=== PATIENT | female | born 1995 | race Caucasian/White ===

== ENCOUNTER 2019-12-27 13:52 | Emergency (ER) | payer MEDICAID ==
[~2019-12-27] VITALS: Ht 175.3 cm; Wt 90.0 kg
[2019-12-27 15:41] VITALS: BP 106/58
== END 2019-12-27 15:44 | disposition home or self-care (01) ==
LOC: ED 15:35
DX: S29.011A Strain of muscle and tendon of front wall of thorax, initial encounter (principal); M94.0 Chondrocostal junction syndrome [Tietze]; R94.31 Abnormal electrocardiogram [ECG] [EKG]; W18.30XA Fall on same level, unspecified, initial encounter; Y93.89 Activity, other specified; Y92.89 Other specified places as the place of occurrence of the external cause; Y99.8 Other external cause status
CPT/HCPCS: 71046; 93005; 99283

== ENCOUNTER 2020-02-28 19:48 | Emergency (ER) | payer MEDICAID ==
[~2020-02-28] VITALS: Ht 172.7 cm; Wt 88.5 kg
--- NOTE | 2020-02-28 19:58 | NUR ---
PT BIB EMS FOR RUQ PAIN THAT GETS WORSE WHEN SHE EATS. PT ALSO COMPLAIN OF NVD. EKG HAS BEEN COMPLETED. PT IS RESTING IN [place] CONNECTED TO MONITORING EQUIPMENT
[2020-02-28 20:25] LABS: MICROSCOPIC NOT IND
[2020-02-28] MEDS ORDERED: ONDANSETRON ODT 4 MG PO ONE (20:30)
[2020-02-28] MEDS ORDERED: ONDANSETRON ODT 4 MG ONE (20:32)
[2020-02-28 21:00] LABS: BASOPHILS # (AUTO) 0.04 x10^3/uL (0-0.1); BASOPHILS % (AUTO) 1 % (0-1); EOSINOPHILS # (AUTO) 0.02 x10^3/uL (0-0.4); EOSINOPHILS % (AUTO) 0 % (1-7); LYMPHOCYTES # (AUTO) 1.53 x10^3/uL (1-3.4); LYMPHOCYTES % (AUTO) 18 % (22-44); MD NO; MEAN CORPUSCULAR HEMOGLOBIN 30.4 pg (27.0-34.8); MEAN CORPUSCULAR HGB CONC 32.6 g/dL (32.4-35.8); MEAN CORPUSCULAR VOLUME 93.1 fL (80-100); MEAN PLATELET VOLUME 9.7 fL (7.4-10.4); MONOCYTES # (AUTO) 0.52 x10^3/uL (0.2-0.8); MONOCYTES % (AUTO) 6 % (2-9); NEUTROPHILS # (AUTO) 6.25 x10^3/uL (1.8-6.8); NEUTROPHILS % (AUTO) 75 % (42-75); PLATELET COUNT 197 x10^3/uL (130-400); RED BLOOD COUNT 4.56 x10^6/uL (3.82-5.3); RED CELL DISTRIBUTION WIDTH 12.6 % (9.6-15.2)
[2020-02-28 21:06] LABS: ALANINE AMINOTRANSFERASE 17 U/L (12-78); ALBUMIN 3.8 g/dL (3.4-5.0); ANION GAP 4 mmol/L (5-15); CHLORIDE 112 mmol/L (98-107); CREATININE 0.63 mg/dL (0.55-1.02)
[2020-02-28 21:10] LABS: ALKALINE PHOSPHATASE 53 U/L (45-117); BILIRUBIN,TOTAL 0.6 mg/dL (0.2-1.0); TOTAL PROTEIN 7.4 g/dL (6.4-8.2)
[2020-02-28] MEDS ORDERED: MORPHINE SULFATE 4 MG/ML, 1ML ONE (21:10)
--- NOTE | 2020-02-28 21:20 | NUR ---
PT CO OF PAIN. PT MEDICATED PER MAR
[2020-02-28] MEDS ORDERED: MORPHINE SULFATE 4 MG/ML, 1ML IVPush PRN (21:30)
[2020-02-28 22:33] VITALS: BP 133/82
--- NOTE | 2020-02-28 22:33 | NUR ---
PT REPORTS PAIN IMPROVEMENT
== END 2020-02-28 23:14 | disposition home or self-care (01) ==
LOC: ED 22:10
DX: R10.11 Right upper quadrant pain (principal); R11.2 Nausea with vomiting, unspecified; R94.31 Abnormal electrocardiogram [ECG] [EKG]; Z90.89 Acquired absence of other organs; Z87.891 Personal history of nicotine dependence
CPT/HCPCS: 36415; 76700; 80053; 81003; 83690; 84703; 85025; 93005; 96374; 99285; J2270; Q0162